=== PATIENT | female | born 1955 | race Asian ===

== ENCOUNTER 2019-09-05 06:39 | Emergency (ER) | payer SELFPAY ==
[2019-09-05] MEDS ORDERED: ONDANSETRON 4 MG/2 ML VIAL IVPB ONE (07:03)
[2019-09-05] MEDS ORDERED: SODIUM CHLORIDE 1,000 ML IV STA ×2 (07:03→09:03)
[2019-09-05 07:05] VITALS: BMI 32.8
--- NOTE | 2019-09-05 07:10 | PDOC ---
History of Present Illness - General Chief Complaint: Weakness Stated Complaint: FEVER,WEAKNESS Time Seen by Provider: 09/05/19 06:59 History Source: Family Exam Limitations: No Limitations - History of Present Illness Initial Comments: 09/05/19 07:06 63 y/o female presents with fever, body aches and N/V that started last evening. No diarrhea or sick contacts. Has not taken anything. Hx of breast CA and HTN. States urine smells as well and has a hx of UTI. No SOb, chest pain or cough. Denies abdominal or back pain as well. Is this a multiple visit Asthma Patient?: No Timing/Duration: constant Severity: mild Past History - Past Medical History Allergies/Adverse Reactions: Allergies Allergy/AdvReac Type Severity Reaction Status Date / Time No Known Allergies Allergy Verified 09/05/19 06:43 Home Medications: Ambulatory Orders Letrozole 2.5 mg PO DAILY 09/05/19 Losartan Potassium 50 mg PO DAILY 09/05/19 Ondansetron [Zofran *Odt*] 4 mg SL TID #10 od.tablet 09/05/19 COPD: No HTN: Yes - Psycho Social/Smoking Cessation Hx Smoking History: Never smoked Have you smoked in the past 12 months: No Information on smoking cessation initiated: No Hx Alcohol Use: No Drug/Substance Use Hx: No Review of Systems - Review of Systems Able to Perform ROS?: Yes Is the patient limited Ivorian proficient: No Constitutional: Yes: Chills, Fever, Malaise HEENTM: No: Throat Pain Respiratory: No: Cough, Shortness of Breath Cardiac (ROS): No: Chest Pain, Palpitations ABD/GI: Yes: Nausea, Vomiting. No: Diarrhea : No: Dysuria Musculoskeletal: No: Joint Pain, Muscle Pain Neurological: No: Headache All Other Systems: Reviewed and Negative *Physical Exam - Vital Signs Last Vital Signs Temp Pulse Resp BP Pulse Ox 98.3 F 100 H 16 90/65 98 09/05/19 07:00 09/05/19 07:00 09/05/19 07:00 09/05/19 07:00 09/05/19 07:00 - Physical Exam General Appearance: Yes: Nourished, Mild Distress HEENT: positive: EOMI, JAMA, Normal ENT Inspection, Normal Voice, Symmetrical, Pharynx Normal Neck: positive: Trachea midline, Normal Thyroid, Supple. negative: Tender, Rigid, Carotid bruit Respiratory/Chest: positive: Lungs Clear, Normal Breath Sounds. negative: Chest Tender Cardiovascular: positive: Regular Rhythm, Regular Rate, S1, S2. negative: Edema , JVD, Murmur Vascular Pulses: Femoral (R): 4+, Femoral (L): 4+, Carotid (R): 4+, Carotid (L) : 4+, Dorsalis-Pedis (R): 4+, Doralis-Pedis (L): 4+ Gastrointestinal/Abdominal: positive: Normal Bowel Sounds, Flat, Soft. negative : Tender, Organomegaly, Pulsatile Mass Lymphatic: negative: Adenopathy, Tenderness, Other Musculoskeletal: positive: Normal Inspection. negative: CVA Tenderness, Vertebral Tenderness Extremity: positive: Normal Capillary Refill, Normal Inspection, Normal Range of Motion, Swelling (rigth arm secondary to breast cancer, lymphadema) Integumentary: positive: Normal Color, Dry, Warm Neurologic: positive: resident care manager II-XII NML intact, Fully Oriented, Alert, Normal Mood/ Affect, Normal Response, Motor Strength 01/17 ED Treatment Course - LABORATORY CBC & Chemistry Diagram: 09/05/19 07:25 09/05/19 07:25 - ADDITIONAL ORDERS Additional order review: 09/05/19 07:10 Pt presents with flu like symptoms with check labs and give IVF Family is in agreement with plan 09/05/19 09:56 After fluids, pt is feeling much better. WBC elevated Will prescribe Zofran IF worsen will return to ER Family in agreement with plan Discharge - Discharge Information Problems reviewed: Yes Clinical Impression/Diagnosis: Gastroenteritis Condition: Good Disposition: HOME - Admission No - Follow up/Referral - Patient Discharge Instructions Patient Printed Discharge Instructions: DI for Bacterial Gastroenteritis -- Adult Additional Instructions: Fluids, rest, Tylenol Zofran 4 mg ODT every 8 hr as needed If worsens in next 24 hr return to ER - Post Discharge Activity
[2019-09-05] MEDS ORDERED: ONDANSETRON 4 MG/2 ML VIAL ONE (07:17)
[2019-09-05 08:21] LABS: BASO % 0.2 % (0-2.0); EOS % 0.1 % (0-4.5); HEMATOCRIT 38.7 % (32.4-45.2); HEMOGLOBIN 12.6 GM/dL (10.7-15.3); LYMPH % 7.2 % (8-40); MCH 28.7 pg (25.7-33.7); MCHC 32.5 g/dl (32.0-36.0); MEAN CELL VOLUME 88.2 fl (80-96); MEAN PLT VOLUME 8.5 fl (7.5-11.1); MONO % 2.6 % (3.8-10.2); NEUT % 89.9 % (42.8-82.8); PLATELET COUNT 237 K/MM3 (134-434); RBC 4.38 M/mm3 (3.60-5.2); RDW 13.3 % (11.6-15.6); WHITE BLOOD COUNT 18.4 K/mm3 (4.0-10.0)
[2019-09-05 09:02] LABS: ALBUMIN 3.2 g/dl (3.4-5.0); BILIRUBIN,TOTAL 0.8 mg/dL (0.2-1); BLOOD UREA NITROGEN 15.6 mg/dL (7-18); CALCIUM 8.7 mg/dL (8.5-10.1); POTASSIUM 4.1 mmol/L (3.5-5.1); TOT PROT 6.2 g/dl (6.4-8.2)
[2019-09-05 10:03] VITALS: BP 112/61; PULSE 91; TEMP 98
== END 2019-09-05 10:21 | disposition home or self-care (01) ==
LOC: FER 06:39
PROC: 3E033GC Introduction of Other Therapeutic Substance into Peripheral Vein, Percutaneous Approach (ICD-10-PCS; principal; 2019-09-05)
PROC: 3E0337Z Introduction of Electrolytic and Water Balance Substance into Peripheral Vein, Percutaneous Approach (ICD-10-PCS; 2019-09-05)
DX: K52.9 Noninfective gastroenteritis and colitis, unspecified (principal); I10 Essential (primary) hypertension; Z85.3 Personal history of malignant neoplasm of breast; Z87.440 Personal history of urinary (tract) infections
CPT/HCPCS: 36415; 80053; 81003; 85025; 87804; 99282-25; J7030